=== PATIENT | male | born 1975 | race Caucasian/White ===

== ENCOUNTER 2016-10-05 16:49 | Emergency (ER) | payer SELFPAY ==
[~2016-10-05] VITALS: Ht 182.8 cm; Wt 92.5 kg
[2016-10-05] MEDS ORDERED: ZOFRAN ODT4 MG SL (17:46)
[2016-10-05] MEDS ORDERED: CLINDAMYCIN HC300 MG PO (17:46)
== END 2016-10-05 18:03 | disposition home or self-care (01) ==
LOC: ED 16:49
DX: K02.9 Dental caries, unspecified (principal); F17.200 Nicotine dependence, unspecified, uncomplicated; Z91.040 Latex allergy status

== ENCOUNTER → 2023-01-06 | Outpatient (CLI) | payer OTHER ==
[~2023-01-06] MED LIST: CLINDAMYCIN HC300 MG PO; ZOFRAN ODT4 MG SL
[2023-01-06 13:22] LABS: BASO % 0.3 % (0.0-1.0); EOS # 0.3 10*3/uL (0.0-0.4); EOS % 4.2 % (1.0-4.0); HEMATOCRIT 45.4 % (42.0-52.0); LYMPH # 2.4 10*3/uL (1.3-4.4); LYMPH % 39.4 % (27.0-41.0); MEAN CELL VOLUME 96.8 fl (80.0-94.0); MEAN CORPUSCULAR HGB 33.9 pg (27.0-31.0); MEAN PLATELET VOLUME 10.7 fl (9.6-12.3); MONO # 0.4 10*3/uL (0.1-1.0); MONO % 7.3 % (3.0-9.0); NEUT # 2.9 10*3/uL (2.3-7.9); NEUT % 48.6 % (47.0-73.0); PLATELET COUNT AUTOMATED 91 10*3/uL (130-400); RED BLOOD COUNT 4.69 10*6/uL (4.50-5.90); RED CELL DISTRI WIDTH 12.3 % (0-14.5)
[2023-01-06 14:15] LABS: ALKALINE PHOSPHATASE 102 U/L (46-116); BUN 9 mg/dl (9-23); CHLORIDE 106 mmol/L (98-107); SGPT/ALT 143 U/L (10-49); TOTAL PROTEIN 8.2 gm/dL (6.0-8.0)
[2023-01-07 07:06] LABS: HBSAG Negative (Negative); HEP B CORE AB, IGM Negative (Negative)
[2023-01-10 15:07] LABS: HEPATITIS C ANTIBODY Reactive (Non Reactive)
== END | disposition home or self-care (01) ==
LOC: LAB 12:25
PROVIDERS: ATTEND Nurse Practitioner Family
DX: Z11.59 Encounter for screening for other viral diseases (principal); F11.20 Opioid dependence, uncomplicated; R53.83 Other fatigue

== ENCOUNTER 2023-06-14 13:40 | Emergency (ER) | payer OTHER ==
[~2023-06-14] VITALS: Ht 182.8 cm; Wt 99.8 kg
== END 2023-06-14 15:35 | disposition left against medical advice (07) ==
LOC: ED 13:40
DX: M54.50 Low back pain, unspecified (principal); M79.604 Pain in right leg; Z53.21 Procedure and treatment not carried out due to patient leaving prior to being seen by health care provider

== ENCOUNTER 2024-11-28 15:55 | Emergency (ER) | payer OTHER ==
[~2024-11-28] VITALS: Ht 182.8 cm; Wt 102.1 kg
[2024-11-28 16:46] LABS: BASO # 0.0 10*3/uL (0.0-0.1); BASO % 0.3 % (0.0-1.0); EOS # 0.2 10*3/uL (0.0-0.4); EOS % 2.4 % (1.0-4.0); MEAN CELL VOLUME 95.7 fl (80.0-94.0); MEAN CORPUSCULAR HGB 33.2 pg (27.0-31.0); MEAN PLATELET VOLUME 10.5 fl (9.6-12.3); MONO # 0.5 10*3/uL (0.1-1.0); MONO % 7.5 % (3.0-9.0); NEUT # 3.3 10*3/uL (2.3-7.9); NEUT % 53.0 % (47.0-73.0); NUCLEATED RED BLOOD CELL 0.0 % (0.0-0.0); NUCLEATED RED BLOOD CELL 0.0 10*3/uL (0.0-0.0); PLATELET COUNT AUTOMATED 85 10*3/uL (130-400); RED CELL DISTRI WIDTH 12.5 % (0-14.5)
[2024-11-28 17:03] LABS: BUN 15 mg/dl (9-23)
== END 2024-11-28 18:39 | disposition home or self-care (01) ==
LOC: ED 15:55
PROVIDERS: Nurse Practitioner Family
DX: R60.0 Localized edema (principal)